=== PATIENT | female | born 1950 | race Hispanic/Latino ===

== ENCOUNTER 2018-01-22 10:51 | Outpatient (CLI) | payer MEDICARE ==
--- NOTE | 2018-01-23 08:31 | Mammography Report ---
BILATERAL DIGITAL SCREENING MAMMOGRAM with CAD: 01/22/18 10:51:00 CLINICAL: Routine screening. COMPARISON:05/10/15 and 09/15/13 FINDINGS: The breasts are almost entirely fatty.Stable right outer mass with partially circumscribed and partially ill-defined margins. By report it has been present since 2001. No new mass, architectural distortion or suspicious calcifications. IMPRESSION: No mammographic evidence of malignancy. BI-RADS CATEGORY: 2 -- Benign RECOMMENDATION: Routine mammographic screening in one year. COMMENT: Patient follow-up letters are generated by our [employer] application.
== END 2018-01-22 10:52 | disposition home or self-care (01) ==
LOC: SPVWC 10:51
PROVIDERS: ATTEND Obstetrics & Gynecology
DX: Z12.31 Encounter for screening mammogram for malignant neoplasm of breast (principal)
CPT/HCPCS: 77067